=== PATIENT | female | born 1995 | race Caucasian/White ===

== ENCOUNTER 2017-06-05 13:43 | Emergency (ER) | payer SELFPAY ==
[~2017-06-05] VITALS: Ht 170.2 cm; Wt 105.0 kg
[2017-06-05 13:45] VITALS: BP 120/78
== END 2017-06-05 15:09 | disposition home or self-care (01) ==
LOC: ED 15:05
DX: M25.561 Pain in right knee (principal)
CPT/HCPCS: 29505; 99284